=== PATIENT | female | born 1950 | race Caucasian/White ===

== ENCOUNTER 2025-01-06 05:27 | Inpatient (IN) ==
--- NOTE | 2024-12-16 11:24 | PAT Medication Instructions ---
Medication Instructions Date of Service December 16, 2024 Home Medications Medication Instructions Recorded gabapentin 300 mg capsule 300 mg PO TID #90 caps 11/24/24 aspirin 81 mg tablet,delayed release (Adult Aspirin Regimen) 81 mg PO QAM celecoxib 200 mg capsule (Celebrex) 200 mg PO QAM loratadine 10 mg tablet (Allergy Relief (loratadine)) 10 mg PO QAM rizatriptan 10 mg disintegrating tablet (Maxalt-1ST PRESSMAN) See Rx Instructions PO .COMPLEX PRN Migraine Headache rosuvastatin 20 mg tablet (Crestor) 20 mg PO HS biotin 1 mg capsule 1 mg PO QAM calcium 600 mg (as carbonate)-vitamin D3 12.5 mcg (500 unit) capsule (Calcium with Vit D3) 1 cap PO QAM multivitamin 1 tab PO QAM metoprolol succinate 25 mg tablet,extended release 24 hr 25 mg PO BID losartan 100 mg tablet 100 mg PO QAM omeprazole 40 mg capsule,delayed release 40 mg PO QAM red yeast rice 300 mg-coQ10 30 lj--ndp 120 mg-epa-fish capsule ([place]) 1 cap PO HS diazepam 10 mg tablet 5 mg PO HS PRN Sleep gabapentin 300 mg capsule 300 mg PO TID ASK your surgeon for instructions celecoxib 200 mg capsule (Celebrex) 200 mg PO QAM ASK your prescriber and surgeon aspirin 81 mg tablet,delayed release (Adult Aspirin Regimen) 81 mg PO QAM STOP taking 2 weeks before surgery (or as soon as possible if surgery is within 2 weeks) red yeast rice 300 mg-coQ10 30 op-noqnu2-rum 120 mg-epa-fish capsule ([place]) 1 cap PO HS DO NOT take the morning of surgery loratadine 10 mg tablet (Allergy Relief (loratadine)) 10 mg PO QAM biotin 1 mg capsule 1 mg PO QAM calcium 600 mg (as carbonate)-vitamin D3 12.5 mcg (500 unit) capsule (Calcium with Vit D3) 1 cap PO QAM multivitamin 1 tab PO QAM losartan 100 mg tablet 100 mg PO QAM Take morning of surgery With a small sip of water, OTHERWISE NOTHING TO EAT OR DRINK AFTER MIDNIGHT: rizatriptan 10 mg disintegrating tablet (Maxalt-1ST [place]ESS[place]) See Rx Instructions PO .COMPLEX PRN Migraine Headache (if needed) metoprolol succinate 25 mg tablet,extended release 24 hr 25 mg PO BID omeprazole 40 mg capsule,delayed release 40 mg PO QAM gabapentin 300 mg capsule 300 mg PO TID Take evening before surgery rizatriptan 10 mg disintegrating tablet (Maxalt-1ST PRESSMAN) See Rx Instructions PO .COMPLEX PRN Migraine Headache (if needed) rosuvastatin 20 mg tablet (Crestor) 20 mg PO HS metoprolol succinate 25 mg tablet,extended release 24 hr 25 mg PO BID diazepam 10 mg tablet 5 mg PO HS PRN Sleep (if needed) gabapentin 300 mg capsule 300 mg PO TID Other Notes If you have any questions please call us at [phone] or [phone] or [phone] or [phone]
--- NOTE | 2024-12-23 14:37 | Anesthesiology Consultation ---
Date of Service December 23, 2024 Assessment & Plan (1) Encounter for pre-operative examination: Chart Review Chart Review: Acceptable Risk for Surgery (pending surgeon ordered PCP and cardio clearances ) and Patient seen in Pre Admission Testing - Awaiting surgeon ordered PCP clearance 12/23/24 (Dr Krystina Goel) ( please send preop testing for PCP to review per patient request) - Awaiting surgeon ordered cardio clearance (Dr German GOMEZ cardio) 12/24/24- ( please send preop testing to cardiology for review per patient request ) Botox injections - gets every three months for migraines. Next scheduled injection 12/30/24- did make surgeon's office aware- per surgeon's office response 12/23/24 "should not get Botox injections until six weeks after surgery.". Did leave message for patient with information and surgeon's office also spoke with patient and relayed information Per PAT appt on 12/23/24, no recent illness/disease exposures, illness related symptoms, or recent illness/disease positive tests. Will leave to surgeon's discretion if preop Covid testing needed Additional Notes (PAT visit was completed remotely while patient was in PAT office) History Surgery Operation Date: 01/06/25 11:05 Proposed Procedures p L4-L5 Decompression and Fusion - Charlie Mitchell, Height/Weight Height: 5 ft 1.5 in Weight: 80.5 kg Allergies Allergy/AdvReac Type Severity Reaction Status Date / Time amoxicillin AdvReac Intermediate severe Verified 12/16/24 10:11 yeast infection ezetimibe [From Zetia] AdvReac Intermediate muscle Verified 12/16/24 10:11 cramping lisinopril AdvReac Intermediate cough Verified 12/16/24 10:11 Sulfa (Sulfonamide AdvReac Intermediate Rash Verified 12/16/24 10:11 Antibiotics) topiramate [From Topamax] AdvReac Intermediate Dizzy Verified 12/16/24 10:11 [id number] Reductase AdvReac Mild muscle Verified 12/16/24 10:12 Inhibitor pain>can tolerate zocor Medications Home Medications Medication Instructions Recorded Confirmed Last Taken aspirin 81 mg tablet,delayed 81 mg PO QAM 07/30/19 12/16/24 Unknown release (Adult Aspirin Regimen) celecoxib 200 mg capsule (Celebrex) 200 mg PO QAM 07/30/19 12/16/24 Unknown loratadine 10 mg tablet (Allergy 10 mg PO QAM 07/30/19 12/16/24 Unknown Relief (loratadine)) rizatriptan 10 mg disintegrating See Rx Instructions PO .COMPLEX 07/30/19 12/16/24 Unknown tablet (Maxalt-TIRE [place]) PRN Migraine Headache rosuvastatin 20 mg tablet (Crestor) 20 mg PO HS 07/30/19 12/16/24 Unknown biotin 1 mg capsule 1 mg PO QAM 06/09/20 12/16/24 Unknown calcium 600 mg (as 1 cap PO QAM 06/09/20 12/16/24 Unknown carbonate)-vitamin D3 12.5 mcg (500 unit) capsule (Calcium with Vit D3) multivitamin 1 tab PO QAM 06/09/20 12/16/24 Unknown metoprolol succinate 25 mg 25 mg PO BID 02/26/23 12/16/24 Unknown tablet,extended release 24 hr losartan 100 mg tablet 100 mg PO QAM 05/28/23 12/16/24 Unknown omeprazole 40 mg capsule,delayed 40 mg PO QAM 05/28/23 12/16/24 Unknown release red yeast rice 300 mg-coQ10 30 1 cap PO HS 04/14/24 12/16/24 Unknown fw-[id number]-ywo 120 mg-epa-fish capsule ([place]) diazepam 10 mg tablet 5 mg PO HS PRN Sleep 06/25/24 12/16/24 Unknown gabapentin 300 mg capsule 300 mg PO TID #90 caps 11/24/24 12/16/24 Unknown Past Medical History Medical History (Updated 12/23/24 @ 16:22 by Martha Mcgregor PA-C) Arthritis Bulging lumbar disc GERD (gastroesophageal reflux disease) well controlled and stable (omeprazole) Hiatal hernia small Hyperlipidemia Hypertension Migraine botox treatment>gets every 3 months Spinal stenosis Thyroid nodule being monitored- actually decreased in size on most recent check Oct 2024 Exercise / Class Metabolic Activity II 4-5 Yardwork/Stairs/Walk up hill (one flight of stairs - no chest pain or S OB) Past Family History Family History Other No family history of adverse response to anesthesia Past Surgical History Surgical History H/O thumb surgery right H/O wisdom tooth extraction History of bunionectomy left History of cardiac cath 2019>no stents History of colonoscopy History of esophagogastroduodenoscopy (EGD) History of hysterectomy History of tonsillectomy Past Anesthesia History No Hx of Anesthesia Complications and No Family Hx of Anesthesia Complications History of PONV No Hx of Motion Sickness and History of PONV (hx of PONV in the past- no issues with more recent surgeries ) Social History Smoking Status: Never smoker Do You Dip or Chew Tobacco: No Hx Alcohol Use: Yes alcohol intake frequency: holidays/special occasions only substance use type: does not use Review of Systems - Hx of snoring- no hx of sleep study - Hx of blood transfusion due to hemorrhage (1970 ) Patient denies chest pain, shortness of breath, dyspnea on exertion, cough, wheezing, palpitations. No hx of seizures, stroke, GA. No hx of blood clots Physical Exam Vital Signs VITALS (done by Samaria Reyes- [facility] tech) BP 120/70 P 69bpm TEMP 98.2 SP02 98% Physical exam performed in PAT office by Dr. Jolly Constitutional no acute distress ENMT Mouth: no dentition abnormality Thyromental Distance: > or= 3.5 Finger Breadths Mallampati Class: III Crowns to molars Neck normal visual inspection Respiratory normal respiratory effort; no respiratory distress Auscultation: lungs clear to auscultation bilaterally Cardiovascular Rate/Rhythm: regular rate and regular rhythm Neurologic moves all extremities Motor/Sensory: no sensory deficit Psychiatric Orientation: alert and oriented x 3 Lab Results Anesthesia Preop Results Results Anesthesia Widget: PT 10.7 Seconds (9.0-12.0) 12/23/24 PTT 26 Seconds (21-31) 12/23/24 INR 1.0 (0.9-1.1) 12/23/24 Urine Color Yellow 12/23/24 Urine Appearance Clear (Clear) 12/23/24 Urine pH 5.5 (4.5-7.5) 12/23/24 Urine Specific [place] 1.022 (1.000-1.030) 12/23/24 Urine Protein Negative (Negative) 12/23/24 Urine Glucose (UA) Negative (Negative) 12/23/24 Urine Ketones Negative (Negative) 12/23/24 Urine Blood Negative (Negative) 12/23/24 Urine Nitrite Negative (Negative) 12/23/24 Urine Bilirubin Negative (Negative) 12/23/24 Urine Urobilinogen Negative (Negative) 12/23/24 Urine Leukocyte Esterase 2+ (Negative) H 12/23/24 Urine WBC (Auto) 6-10 /hpf (0-5) H 12/23/24 Urine RBC (Auto) 0-2 /hpf (0-2) 12/23/24 Urine Hyaline Casts (Auto) 0-2 /lpf (0-2) 12/23/24 Urine Epithelial Cells (Auto) 0-2 /hpf (0-2) 12/23/24 Urine Bacteria (Auto) None Seen (None Seen) 12/23/24 Blood Type O Negative 12/23/24 Antibody Screen NEGATIVE 12/23/24 Testing Laboratory Results 11/21/24= WBC: 6.98 H/H: 12.5/39.8 PLATELETS: 199 SODIUM: 141 POTASSIUM: 4.4 CHLORIDE: 103 CO2: 26 BUN: 22 CREATININE: 0.9 GLUCOSE: 108 Electrocardiogram Date: 12/23/24 Findings: + NSR @ (66bpm ) Normal EKG per cardio Chest X-Ray Date: 12/23/24 Findings: + NAD
[2025-01-06] MEDS: LR 60ML/HR IV SCH (06:21)
[2025-01-06] MEDS: GABAPENTIN 300 MG CAP PO SCH ×2 (06:21→13:28)
[2025-01-06] MEDS: LR 15ML/HR IV SCH (06:36)
[2025-01-06] MEDS: ACETAMINOPHEN 500 MG TAB PO SCH (06:36)
[2025-01-06] MEDS: VANCOMYCIN HCL 1,250 MG in SODIUM CHLORIDE 0.9% 250 ML IV SCH (06:36)
[2025-01-06] MEDS: CeleBREX 200 MG CAP PO SCH (06:36)
[2025-01-06] MEDS ORDERED: HYDROmorphone INJ 2 MG/ML SYR/VIAL IV PRN (07:29)
[2025-01-06] MEDS ORDERED: ATROPINE SULFATE 0.1 MG/ML 10ML SYR IV PRN (07:29)
[2025-01-06] MEDS ORDERED: PROMETHAZINE HCL 6.25 MG in SODIUM CHLORIDE 0.9% 50 ML IV PRN (07:29)
[2025-01-06] MEDS ORDERED: ONDANSETRON INJ 2 MG/ML 2 ML VIAL IV PRN (07:29)
[2025-01-06] MEDS ORDERED: LIDOCAINE 2% 2 ML VIAL/AMP(20MG/ML) INFIL ONE (07:30)
[2025-01-06] MEDS ORDERED: MIDAZOLAM HCL 1 MG/ML 2ML VIAL ONE (07:30)
[2025-01-06] MEDS ORDERED: PROPOFOL IV EMULSION 10 MG/ML 20 ML VIAL IV ONE (07:30)
[2025-01-06] MEDS ORDERED: ROCURONIUM BROMIDE 10 MG/ML 5 ML VIAL IV ONE (07:52)
--- NOTE | 2025-01-06 07:56 | History & Physical Bridge Note ---
Date of Service January 06, 2025 History & Physical Bridge Note I have examined the patient, reviewed the History & Physical and in the interval since the performance of the History & Physical I have noted the following changes of clinical significance: no changes noted
--- NOTE | 2025-01-06 07:57 | History & Physical Report ---
Date of Service January 06, 2025 Assessment & Plan (1) Other spondylosis with radiculopathy, lumbar region: Plan: L4-L5 decompression and fusion History of Present Illness Chief Complaint: Back and leg pain Primary Care Provider: Katy Figueroa DO This is a 74-year-old female who presents for chronic persistent back and leg pain after failing course of nonoperative care is here for surgical intervention. Allergies Allergy/AdvReac Type Severity Reaction Status Date / Time amoxicillin AdvReac Intermediate severe Verified 01/06/25 06:01 yeast infection ezetimibe [From Zetia] AdvReac Intermediate muscle Verified 01/06/25 06:01 cramping lisinopril AdvReac Intermediate cough Verified 01/06/25 06:01 Sulfa (Sulfonamide AdvReac Intermediate Rash Verified 01/06/25 06:01 Antibiotics) topiramate [From Topamax] AdvReac Intermediate Dizzy Verified 01/06/25 06:01 Ibvejze-XQO-EuL Reductase AdvReac Mild muscle Verified 01/06/25 06:01 Inhibitor pain>can tolerate zocor Home Medications Medication Instructions Recorded Confirmed Type aspirin 81 mg tablet,delayed 81 mg PO QAM 07/30/19 01/06/25 History release (Adult Aspirin Regimen) celecoxib 200 mg capsule (Celebrex) 200 mg PO QAM 07/30/19 01/06/25 History loratadine 10 mg tablet (Allergy 10 mg PO QAM 07/30/19 01/06/25 History Relief (loratadine)) rizatriptan 10 mg disintegrating See Rx Instructions PO .COMPLEX 07/30/19 01/06/25 History tablet (Maxalt-UT[employer] ROLL[employer]) PRN Migraine Headache rosuvastatin 20 mg tablet (Crestor) 20 mg PO HS 07/30/19 01/06/25 History biotin 1 mg capsule 1 mg PO QAM 06/09/20 01/06/25 History calcium 600 mg (as 1 cap PO QAM 06/09/20 01/06/25 History carbonate)-vitamin D3 12.5 mcg (500 unit) capsule (Calcium with Vit D3) multivitamin 1 tab PO QAM 06/09/20 01/06/25 History metoprolol succinate 25 mg 25 mg PO BID 02/26/23 01/06/25 History tablet,extended release 24 hr losartan 100 mg tablet (Cozaar) 100 mg PO QA 05/28/23 01/06/25 History omeprazole 40 mg capsule,delayed 40 mg PO QAM 05/28/23 01/06/25 History release red yeast rice 300 mg-coQ10 30 1 cap PO HS 04/14/24 01/06/25 History lh-tozts9-hhm 120 mg-epa-fish capsule ([place]) diazepam 10 mg tablet (Valium) 5 mg PO HS PRN Sleep 06/25/24 01/06/25 History gabapentin 300 mg capsule 300 mg PO TID #90 caps 11/24/24 01/06/25 Rx Past Med/Surg History Problem List (Updated 01/06/25 @ 07:57 by Charlie Mitchell DO) Other spondylosis with radiculopathy, lumbar region Encounter for pre-operative examination Spinal stenosis of lumbar region Lumbar radiculopathy Chronic low back pain Chronic migraine (Chronic) Impingement syndrome, shoulder History of tonsillectomy H/O: hysterectomy History of bunionectomy SI joint arthritis Acid reflux Osteoarthritis Elevated cholesterol HTN (hypertension) Hx of migraines Medical History (Updated 01/06/25 @ 07:57 by Charlie Mitchell DO) Atrial tachycardia Transient atrial tachycardia/wide complex tachycardia past surgical procedure no recurrence per cardio records Hiatal hernia small Bulging lumbar disc Spinal stenosis Arthritis Thyroid nodule being monitored- actually decreased in size on most recent check Oct 2024 GERD (gastroesophageal reflux disease) well controlled and stable (omeprazole) Migraine botox treatment>gets every 3 months Hypertension Hyperlipidemia Surgical History History of bunionectomy left H/O thumb surgery right History of esophagogastroduodenoscopy (EGD) History of colonoscopy H/O wisdom tooth extraction History of tonsillectomy History of hysterectomy History of cardiac cath 2018>no stents Family History Other No family history of adverse response to anesthesia Social History Smoking Status: Never smoker Second Hand Exposure: No; Do You Dip or Chew Tobacco: No; Hx Alcohol Use: Yes Preferred Language: Brazilian Communication Ability: Effective Visual Impairment: No Limitations Hearing Ability: Normal Heel Nail Rasper Required: No Beliefs That Will Affect Care: None marital status: Current Living Situation: Alone current occupational status: retired Feels Safe at Home: Yes Safety Concerns: Feels Safe At This Time Assistive Devices: Glasses Physical Exam Physical Exam: Patient alert and oriented Heart regular rhythm Lungs clear Results & Data Results & Data Vital Signs (Past 12 Hours) Vital Signs Temp Pulse Resp BP Pulse Ox O2 Del Method 01/06/25 06:06 36.8 C 64 20 156/68 H 97 Room Air
[2025-01-06] MEDS: BUPIVACAINE/EPINEPHRINE 0.25% 1:200,000 30 ML VIAL ONE (08:40)
[2025-01-06] MEDS: ceFAZolin 330 MG/ML 1 GM VIAL ONE (08:41)
[2025-01-06] MEDS ORDERED: SUGAMMADEX SODIUM 200 MG/2 ML VIAL IV ONE (09:36)
--- NOTE | 2025-01-06 09:41 | Operative Report ---
Post Operative Report Pre & Post Diagnosis Operation Date: 01/06/25 07:45 Pre-Op Diagnosis: #1 lumbar spondylosis with radiculopathy #2 lumbar spinal stenosis Post-Op Diagnosis: Same I identified the patient and participated in the time-out.: Yes Procedure Operation Date: 01/06/25 07:45 Actual Procedures #1 lumbar decompression bilaterally facetectomies and foraminotomies L3-L4 L4- L5. #2 posterior spinal fusion L4-L5. #3 placement posterior instrumentation L4-L5. #4 interbody fusion L4-L5. #5 posterior Spira 13 x 26 mm x 2 at L4-L5. #6 placement of Koros combined with Proteus bone graft and posterior lateral gutters and os design and interbody space. #7 placement of versa wrap over the exposed dura. Surgeon Charlie Mitchell, Inventory Specialist Manager Ling Mc Estimated Blood Loss 50 Findings Consistent with Post-Op Diagnosis Specimens None Indications This is a 74-year-old female presents publish diagnosis after failing course of nonoperative care is here for surgery invention. Description of Procedure Patient was met with identified informed consent obtained. Patient was then taken to the operative suite underwent the patient placed in the prone position on the Kartik table on top of the Qasim frame. All bony promises well-padded eyes inspected to ensure no external pressure placed upon them. This point lumbar spine was prepped and draped in normal sterile fashion. Sharp dissection with the assistance of of cartilage from down to and exposing the lamina and transverse processes of L4-L5. From a caudal to cephalad fashion complete laminectomy of L4 was performed including bilateral medial facetectomies and foraminotomies addressing severe neural compression. This followed by partial laminectomy of L3 with bilateral medial facetectomies to address all subarticular stenosis. Pedicle screws were then placed in L for L5 bilaterally with assistance of fluoroscopy and appropriately sized mayda placed. By way of transforaminal approach on the right a discectomy of L4-L5 was performed endplates corrected to subcortical bleeding bone and a 13 x 26 mm Spira cage tapped into position. Then proceeded to the left transforaminal region at L4- L5. Again discectomy performed. Endplates guided to subcortical bleeding bone and a second 13 x 26 mm Spira cage tapped into position. Please note all cages were packed with os design bone graft. The rods were then compressed locked into final position bilaterally. The transverse processes of L4-5 burred to subcortical bleeding bone. Koros combined with Proteus bone graft placed in posterior gutters. Versa wrap placed over the exposed dura. 15 round KARRI drain inserted. The incision was then closed with 1 Vicryl in the fascia 2-0 Vicryl subcutaneously and 4-0 Monocryl for final skin closure. Steri-Strips sterile dressing placed. Patient waken taken to PACU stable condition. Please note Ling Mc was present throughout the entire procedure involved patient positioning complex portion of the surgery and final skin closure. I attest to the content of the Intraoperative Record and any orders documented therein. Any exceptions are noted below.
--- NOTE | 2025-01-06 09:56 | Fluoroscopy Report ---
FL lumbar spine 2-3V CLINICAL HISTORY: L4-L5 DECOMPRESSION AND FUSION COMPARISON STUDY: Lumbar spine MRI December 23, 2024. Fluoroscopy time: 11 seconds. Number of fluoroscopic images: 1. Ka,r: 9.0189 mGy. FINDINGS: Fluoroscopy was provided during L4-L5 discectomy with interbody spacer placement, posterior decompression and bilateral pedicle screw fusion. Hardware is intact. No unexpected radiopaque forei gn bodies are present. IMPRESSION: Fluoroscopy provided during L4-L5 decompression and fusion. ACT 112: Negative or not required by law. Electronically signed by: Tanner Johnson M.D. 01/06/2025 9:54 AM
--- NOTE | 2025-01-06 10:10 | Anesthesiology Progress Note ---
Date of Service January 06, 2025 Anesthesia Post Procedure Vital Signs Vital Signs: Temp Pulse Pulse Resp BP Pulse Ox O2 Del Method 01/06/25 09:50 36.0 C L 77 16 168/69 H 98 Oxymask 01/06/25 06:06 36.8 C 64 20 156/68 H 97 Room Air O2 Flow Rate 01/06/25 09:50 7 01/06/25 06:06 Pain Intensity Left Lower Lateral Back: Pain Intensity: 5 Transfer of Care Handoff Completed per policy Notes Mental Status: alert / awake / arousable Patient Amnestic to Procedure: Yes Nausea / Vomiting: adequately controlled Pain: adequately controlled Airway Patency, RR, SpO2: stable & adequate BP & HR: stable & adequate Hydration State: stable & adequate Anesthetic Complications: no major complications apparent
[2025-01-06] MEDS ORDERED: METOCLOPRAMIDE HCL INJ 5 MG/ML 2 ML VIAL IV PRN (11:50)
[2025-01-06] MEDS ORDERED: MAGNESIUM HYDROXIDE SUSP 30 ML UDC PO PRN (11:50)
[2025-01-06] MEDS ORDERED: ACETAMINOPHEN 1,000 MG/100 ML VIAL IV PRN (11:50)
[2025-01-06] MEDS ORDERED: LORazepam Inj 0.5 MG in SYRINGE 0.25 ML IV PRN (11:50)
[2025-01-06] MEDS ORDERED: PROMETHAZINE 12.5 MG/50.5 ML BAG IV PRN (11:50)
[2025-01-06] MEDS ORDERED: ALUMINUM/MAGNESIUM SUSP 30 ML UDC PO PRN (11:50)
[2025-01-06] MEDS ORDERED: FAMOTIDINE 20 MG TAB PO PRN (11:50)
[2025-01-06] MEDS ORDERED: HYDROmorphone INJ 0.5 MG/0.5 ML SYR IV PRN (11:50)
[2025-01-06] MEDS ORDERED: ONDANSETRON 4 MG OD TAB PO PRN (11:50)
[2025-01-06] MEDS ORDERED: LORazepam 0.5 MG TAB PO PRN (11:50)
[2025-01-06] MEDS ORDERED: DO NOT ADMINISTER FLU VACCINE PRN (11:50)
[2025-01-06] MEDS ORDERED: diphenhydrAMINE Capsule 25 MG CAP PO PRN (11:50)
[2025-01-06] MEDS ORDERED: SOD PHOSPHATE/SOD BIPHOSPHATE ENEMA 132 ML BTL PR PRN (11:50)
[2025-01-06] MEDS ORDERED: DO NOT ADMINISTER PNEUMOCOCCAL VACCINE PRN (11:50)
[2025-01-06] MEDS ORDERED: NALOXONE HCL 0.4 MG/1 ML VIAL/CARP IV PRN (11:50)
[2025-01-06] MEDS: FLOSEAL HEMOSTATIC MATRIX 10ML TOP ONE (11:59)
[2025-01-06] MEDS ORDERED: RIZATRIPTAN BENZOATE 10 MG TAB PO PRN (12:04)
[2025-01-06] MEDS: LACTATED RINGER'S 1,000 ML IV SCH (12:20)
[2025-01-06] MEDS: HYDROmorphone INJ 1 MG/ML SYRINGE IV PRN (12:21)
--- NOTE | 2025-01-06 13:24 | Consultation ---
Date of Consultation January 06, 2025 Assessment & Plan (1) Other spondylosis with radiculopathy, lumbar region: (2) Hyperlipidemia: (3) HTN (hypertension): (4) GERD (gastroesophageal reflux disease): Plan 74 year old F post op L4-L5 decompression and fusion surgery under the care of Dr. Mitchell. #Other spondylosis with radiculopathy; lumbar: POD#0 s/pL4-L5 decompression and fusion surgery under the care of Dr. Mitchell. Per ortho for pain control, wound care, anticoagulation and activities. Monitor H&H, continue incentive spirometry. PT/OT when appropriate. Demonstrated appropriate Incentive Spirometry work #HTN Takes Losarten and Metoprolol; continue #HLD: Takes Rosuvastatin; continue #GERD: Takes Omeprazole; continue Disposition: PCP: Katy Figueroa Code Status: Full VTE Prophylaxis: Teds and SCDs per admitting team I spent a total of 60 minutes coordinating, documenting, and providing care for this patient excluding time spent inthe performance of separately billed services or time spent by another provider/QHP. Supervising Physician Co-Signing Physician Notes Patient is a 74-year-old female with history of lumbar spinal stenosis, migraine, hypertension, hyperlipidemia, GERD and no other significant past medical history was consulted for postop medical management. Patient underwent lumbar decompression, fusion surgery by Dr. Mitchell on 01/06/2025. Patient is doing well postoperatively. She does have some pain at the surgical site but otherwise denies any symptoms. On exam patient is overweight, no apparent distress, normocephalic atraumatic, EOMI, normal breath sounds, clear to auscultation, S1-S2, no murmur, no pedal edema, abdomen soft, nontender, normal bowel sounds, back-surgical site in dressing,+ drain, alert, awake, oriented, grossly no focal deficits. Postoperative state. Monitor for postop anemia. Continue bowel regimen to prevent constipation. Wound care, activity, DVT prophylaxis as per primary team. Continue home medications for blood pressure. Will plan to obtain blood work tomorrow. I personally interviewed and examined the patient at bedside. I have reviewed the advanced practitioner's documentation on the date of service referred in note and agree with plan. Patient's care is coordinated with Jyoti VIDALES. Please refer to the documentation above for details of patient's presentation and for discussion of other issues. I spent a total [id number] coordinating, documenting, and providing care for this patient excluding time spent in the performance of separately billed services or time spent by another provider/QHP. History of Present Illness Requesting Physician: Dr. Mitchell Reason for Consultation: post op medical management Attending Physician: Charlie Mitchell, DO History of Present Illness Ms. Ricardo is a 74 year old female that presents to the [facility] under the care of Dr. Mitchell for an elective L4-L5 decompression and fusion surgery. This is her first back surgery. She has no history of AMI or CVA. Additional PMH includes HTN, HLD and peripheral neuropathy. She is doing well post op and has already tolerated a clear liquid diet. She is able to move her legs and reports less peripheral neuropathy compared to pre op. She is AAOx3 and her daughter and granddaughter are at bedside. [facility] Hospitalist were consulted for post operative medical management. We are available 28/08 via [employer]. Please see A/P for further details. Allergies Allergy/AdvReac Type Severity Reaction Status Date / Time amoxicillin AdvReac Intermediate severe Verified 01/06/25 06:01 yeast infection ezetimibe [From Zetia] AdvReac Intermediate muscle Verified 01/06/25 06:01 cramping lisinopril AdvReac Intermediate cough Verified 01/06/25 06:01 Sulfa (Sulfonamide AdvReac Intermediate Rash Verified 01/06/25 06:01 Antibiotics) topiramate [From Topamax] AdvReac Intermediate Dizzy Verified 01/06/25 06:01 [id number] Reductase AdvReac Mild muscle Verified 01/06/25 06:01 Inhibitor pain>can tolerate zocor Home Medications Medication Instructions Recorded Confirmed Type aspirin 81 mg tablet,delayed 81 mg PO QAM 07/30/19 01/06/25 History release (Adult Aspirin Regimen) celecoxib 200 mg capsule (Celebrex) 200 mg PO QAM 07/30/19 01/06/25 History loratadine 10 mg tablet (Allergy 10 mg PO QAM 07/30/19 01/06/25 History Relief (loratadine)) rizatriptan 10 mg disintegrating See Rx Instructions PO .COMPLEX 07/30/19 01/06/25 History tablet (Maxalt-MARKETING OPERATIONS ASSISTANT) PRN Migraine Headache rosuvastatin 20 mg tablet (Crestor) 20 mg PO HS 07/30/19 01/06/25 History biotin 1 mg capsule 1 mg PO QAM 06/09/20 01/06/25 History calcium 600 mg (as 1 cap PO QAM 06/09/20 01/06/25 History carbonate)-vitamin D3 12.5 mcg (500 unit) capsule (Calcium with Vit D3) multivitamin 1 tab PO QAM 06/09/20 01/06/25 History metoprolol succinate 25 mg 25 mg PO BID 02/26/23 01/06/25 History tablet,extended release 24 hr losartan 100 mg tablet (Cozaar) 100 mg PO QAM 05/28/23 01/06/25 History omeprazole 40 mg capsule,delayed 40 mg PO QAM 05/28/23 01/06/25 History release red yeast rice 300 mg-coQ10 30 1 cap PO HS 04/14/24 01/06/25 History [id number] 120 mg-epa-fish capsule ([place]) diazepam 10 mg tablet (Valium) 5 mg PO HS PRN Sleep 06/25/24 01/06/25 History gabapentin 300 mg capsule 300 mg PO TID #90 caps 11/24/24 01/06/25 Rx oxycodone 5 mg tablet 5 mg PO Q6H PRN pain #30 tabs 01/06/25 Rx tramadol 50 mg tablet 50 mg PO Q6H PRN pain, moderate 01/06/25 Rx #30 tabs Patient History Medical History Atrial tachycardia Transient atrial tachycardia/wide complex tachycardia past surgical procedure no recurrence per cardio records Hiatal hernia small Bulging lumbar disc Spinal stenosis Arthritis Thyroid nodule being monitored- actually decreased in size on most recent check Oct 2024 GERD (gastroesophageal reflux disease) well controlled and stable (omeprazole) Migraine botox treatment>gets every 3 months Hypertension Hyperlipidemia Surgical History History of bunionectomy left H/O thumb surgery right History of esophagogastroduodenoscopy (EGD) History of colonoscopy H/O wisdom tooth extraction History of tonsillectomy History of hysterectomy History of cardiac cath 2018>no stents Family History Other No family history of adverse response to anesthesia Social History Smoking Status: Never smoker Second Hand Exposure: No; Do You Dip or Chew Tobacco: No; Hx Alcohol Use: Yes Preferred Language: Bengali Communication Ability: Effective Visual Impairment: No Limitations Hearing Ability: Normal Coal Trammer Required: No Beliefs That Will Affect Care: None marital status: Current Living Situation: Alone current occupational status: retired Feels Safe at Home: Yes Safety Concerns: Feels Safe At This Time Assistive Devices: Glasses Review of Systems Review of Systems: Neuro: (-) Falls, trauma, slurred speech HEENT: (-) LIZAMA, dizziness, dysphagia, visual or auditory changes CV: (-) CP, palpitations, swelling Resp: (-) SOB GI: (-) appetite changes, N/V/D, bowel changes : (-) urinary changes Skin: (-) rashes Psych: (-) anxiety, depression Physical Exam Physical Exam: Neuro: AAOx4, PERRLA, no aphagia, memory changes, CNII-XII grossly intact HEENT: head normocephalic, moist mucus membranes CV: S1/S2, (-) M/G/R, (-) edema, cap refill < 3 seconds Resp: Lungs CTA in all sow. On RA GI: Abdomen S/NT/ND, Ax4 bowel sounds, (-) CVA tenderness Musculoskeletal: 5/5 B/L UE strength, 4/5 B/L LE strength. will use walker post op Skin: (-) rashes , (-) erythema. Psych: euthymic mood Results & Data Vital Signs (Past 12 Hours) Vital Signs Temp Pulse Pulse Resp BP Pulse Ox O2 Del Method 01/06/25 12:15 77 18 143/74 H 97 Room Air 01/06/25 11:51 36.5 C 74 17 139/68 93 Room Air 01/06/25 11:30 72 13 143/58 H 94 Nasal Cannula 01/06/25 11:15 73 12 158/65 H 95 Nasal Cannula 01/06/25 11:00 70 12 136/71 95 Nasal Cannula 01/06/25 10:45 70 12 167/75 H 96 Nasal Cannula 01/06/25 10:30 36.2 C L 69 12 154/73 H 99 Nasal Cannula 01/06/25 10:20 72 14 151/51 H 96 Nasal Cannula 01/06/25 10:10 71 12 157/87 H 99 Oxymask 01/06/25 10:00 71 16 153/64 H 99 Oxymask 01/06/25 09:50 36.0 C L 77 16 168/69 H 98 Oxymask 01/06/25 06:06 36.8 C 64 20 156/68 H 97 Room Air O2 Flow Rate 01/06/25 12:15 01/06/25 11:51 01/06/25 11:30 2 01/06/25 11:15 2 01/06/25 11:00 2 01/06/25 10:45 2 01/06/25 10:30 2 01/06/25 10:20 2 01/06/25 10:10 7 01/06/25 10:00 7 01/06/25 09:50 7 01/06/25 06:06 Diagnostic Findings Lumbar Spine X-Ray 01/06/25 07:45 FL lumbar spine 2-3V CLINICAL HISTORY: L4-L5 DECOMPRESSION AND FUSION COMPARISON STUDY: Lumbar spine MRI December 23, 2024. Fluoroscopy time: 11 seconds. Number of fluoroscopic images: 1. Ka,r: 9.0189 mGy. FINDINGS: Fluoroscopy was provided during L4-L5 discectomy with interbody spacer placement, posterior decompression and bilateral pedicle screw fusion. Hardware is intact. No unexpected radiopaque foreign bodies are present. IMPRESSION: Fluoroscopy provided during L4-L5 decompression and fusion. ACT 112: Negative or not required by law. Electronically signed by: Tanner Johnson M.D. 01/06/2025 9:54 AM
[2025-01-06] MEDS: ONDANSETRON INJ 2 MG/ML 2 ML VIAL IV PRN (15:30)
[2025-01-06] MEDS: DOCUSATE SODIUM/SENNA 50/8.6MG TAB PO SCH (20:05)
[2025-01-06] MEDS: ROSUVASTATIN CALCIUM 20 MG TAB PO SCH (20:05)
[2025-01-06] MEDS: METOPROLOL SUCC 25MG EXT REL TAB PO SCH (20:06)
[2025-01-07] MEDS: ACETAMINOPHEN 500 MG TAB PO PRN (01:53)
[2025-01-07] MEDS: POLYETHYLENE (MIRALAX) 17 GM PACK PO SCH (05:08)
[2025-01-07 06:35] LABS: Hematocrit (blood only) 29.4 % (37.0-47.0); Hemoglobin 9.8 g/dL (12.0-16.0); Immature Granulocytes # (auto) 0.07 K/uL (0.01-0.20); Immature Granulocytes % (auto) 0.5 %; Mean Corpuscular Hemoglobin 29.6 pg (25.0-34.0); Mean Corpuscular Volume 88.8 fL (80.0-100.0); Platelet Count 149 K/uL (130-400); RDW Standard Deviation 40.0 fL (36.4-46.3); Red Blood Count 3.31 M/uL (4.20-5.40); White Blood Count 12.77 K/ul (4.8-10.8)
[2025-01-07 07:05] LABS: Anion Gap 7.0 (3-11); Blood Urea Nitrogen 15.0 mg/dl (6-23); Calcium 8.6 mg/dl (8.6-10.3); Carbon Dioxide 27.0 mmol/L (21-32); Chloride 106.0 mmol/L (98-107); Creatinine Clr Calc Pharmacy 58.5 ml/min; Glucose 138.0 mg/dl (70-99(Fasting)); Potassium 4.3 mmol/L (3.5-5.1); Sodium 140.0 mmol/L (136-145)
[2025-01-07] MEDS: CALCIUM 600MG + VIT D 400 IU TAB PO SCH (08:05)
[2025-01-07] MEDS: MULTIVITAMIN TAB PO SCH (08:06)
[2025-01-07] MEDS: ASPIRIN 81 MG ECTAB PO SCH (08:06)
[2025-01-07] MEDS: dexAMETHasone 6 MG in SYRINGE 0 ML IV SCH (08:07)
[2025-01-07] MEDS: LORATADINE 10 MG TAB PO SCH (08:09)
[2025-01-07] MEDS: LOSARTAN POTASSIUM 50 MG TAB PO SCH (08:13)
--- NOTE | 2025-01-07 08:31 | Orthopedic Progress Note ---
Date of Service January 07, 2025 Assessment & Plan (1) Other spondylosis with radiculopathy, lumbar region: Plan: Serina is postoperative day 1 status post L4-5 decompression and fusion. She will start physical therapy today. Maintain KARRI drain. DVT prophylaxis in the form teds and SCDs. Consult case management for decision of home versus rehab upon discharge. Admission and Anticipated Discharge Date Admission Date: January 06, 2025 Subjective Serina is postoperative day 1 status post L4-5 decompression and fusion. Her biggest complaint is right leg weakness. She reports having this preoperatively. KARRI drain output last shift was 10 cc. H&H this morning 9.8 and 29.4 respectively. No other complaints. Review of Systems Review of Systems: All systems reviewed & are unremarkable except as noted in HPI & below Physical Exam Physical Exam: She is sitting up in bed eating breakfast in no acute distress Alert and oriented x 3 She does have breakaway weakness over the right lower extremity, strength 5/5 left lower extremity Lumbar dressing is clean dry and intact with functioning KARRI drain Results & Data Vital Signs (Past 12 Hours) Vital Signs Temp Pulse Pulse Resp BP Pulse Ox O2 Del Method 01/07/25 08:13 80 18 148/76 H 97 Room Air 01/07/25 07:48 36.5 C 79 18 114/56 L 96 Room Air 01/07/25 07:14 36.7 C 74 16 110/59 L 93 Room Air 01/07/25 03:11 36.5 C 79 16 111/55 L 96 Room Air 01/06/25 23:57 36.4 C L 86 16 120/60 96 Room Air
--- NOTE | 2025-01-07 10:43 | Hospitalist Progress Note ---
Date of Service January 07, 2025 Assessment & Plan (1) Other spondylosis with radiculopathy, lumbar region: (2) Hyperlipidemia: (3) HTN (hypertension): (4) GERD (gastroesophageal reflux disease): Plan Patient 74-year-old female status post lumbar surgery. Reviewed blood pressures, overall fairly well-controlled, continue current medical regimen Continue activity Post op care as per attending Admission and Anticipated Discharge Date Admission Date: January 06, 2025 Subjective Patient seen while working with OT. States her pain is significantly improved. No chest pain or shortness of breath Physical Exam Physical Exam: Constitutional: Alert HEENT: Mucous membranes moist. Lungs: Clear to auscultation, decreased, no wheezes rales or rhonchi CV: S1-S2, regular Abdomen: Soft, nontender, nondistended Musculoskeletal: KARRI drain in place, surgical dressing clean Extremities: No significant edema Neuro: Good strength and movement lower extremities Psych: Cooperative, normal mood Results & Data Results & Data Vital Signs (Past 12 Hours) Vital Signs Temp Pulse Pulse Resp BP Pulse Ox O2 Del Method 01/07/25 08:13 80 18 148/76 H 97 Room Air 01/07/25 07:48 36.5 C 79 18 114/56 L 96 Room Air 01/07/25 07:14 36.7 C 74 16 110/59 L 93 Room Air 01/07/25 03:11 36.5 C 79 16 111/55 L 96 Room Air 01/06/25 23:57 36.4 C L 86 16 120/60 96 Room Air Diagnostic Findings WBCs 12.7 Hemoglobin 9.8 BMP stable
--- NOTE | 2025-01-08 08:36 | Orthopedic Progress Note ---
Date of Service January 08, 2025 Assessment & Plan (1) Other spondylosis with radiculopathy, lumbar region: Plan: At this time we will continue physical therapy monitor KARRI output anticipate discharge home tomorrow. Admission and Anticipated Discharge Date Admission Date: January 06, 2025 Subjective Patient's back pain is controlled leg symptoms improved Physical Exam Physical Exam: Patient is in the chair at the bedside. She is quite comfortable. Good strength testing. Results & Data Vital Signs (Past 12 Hours) Vital Signs Temp Pulse BP Pulse Ox O2 Del Method 01/08/25 07:44 36.7 C 61 107/58 L 97 Room Air Queries Orthopedic Spine Obesity: Yes
--- NOTE | 2025-01-08 10:38 | Hospitalist Progress Note ---
Date of Service January 08, 2025 Assessment & Plan (1) Other spondylosis with radiculopathy, lumbar region: (2) Hyperlipidemia: (3) HTN (hypertension): (4) GERD (gastroesophageal reflux disease): Plan Patient 74-year-old female status post lumbar surgery, uncomplicated postop erative course so far Blood pressure is well-controlled Continue current medications Continue to work towards discharge as directed by attending Admission and Anticipated Discharge Date Admission Date: January 06, 2025 Subjective Patient states her pain is well-controlled. She has been ambulating in her room getting up by herself. Physical Exam Physical Exam: Constitutional: Alert, nontoxic HEENT: Mucous membranes moist. Lungs: Clear to auscultation, decreased, no wheezes rales or rhonchi CV: S1-S2, regular Abdomen: Soft, nontender, nondistended Extremities: No significant edema Musculoskeletal: Surgical dressing over lumbar spine clean and dry, KARRI drain in place Neuro: No focal deficits Psych: Cooperative, normal mood Results & Data Results & Data Vital Signs (Past 12 Hours) Vital Signs Temp Pulse BP Pulse Ox O2 Del Method 01/08/25 07:44 36.7 C 61 107/58 L 97 Room Air Diagnostic Findings Reviewed imaging, laboratory and diagnostic studies. Pertinent findings as below.
--- NOTE | 2025-01-09 10:21 | Discharge Summary ---
Date of Service January 09, 2025 Admission HPI Per Admitting Provider This is a 74-year-old female who presents for chronic persistent back and leg pain after failing course of nonoperative care is here for surgical intervention. Principal Diagnosis Lumbar spondylosis with radiculopathy Discharge Data Allergies Allergy/AdvReac Type Severity Reaction Status Date / Time amoxicillin AdvReac Intermediate severe Verified 01/06/25 06:01 yeast infection ezetimibe [From Zetia] AdvReac Intermediate muscle Verified 01/06/25 06:01 cramping lisinopril AdvReac Intermediate cough Verified 01/06/25 06:01 Sulfa (Sulfonamide AdvReac Intermediate Rash Verified 01/06/25 06:01 Antibiotics) topiramate [From Topamax] AdvReac Intermediate Dizzy Verified 01/06/25 06:01 [id number] Reductase AdvReac Mild muscle Verified 01/06/25 06:01 Inhibitor pain>can tolerate zocor Consultations 01/06/25 11:50 Consult Hospitalist Routine Procedures Performed Operation Date: 01/06/25 07:45 Actual Procedures p L4-L5 Decompression and Fusion(Not Applicable) - Charlie Mitchell DO Ordered Studies 01/06/25 07:45 FL lumbar spine 2-3V Routine Hospital Course (1) Other spondylosis with radiculopathy, lumbar region: Patient went lumbar decompression fusion tolerated so was taken to orthopedic for postoperative postoperative she progressed appropriately. KARRI drain decreasing well. Excellent strength testing. Pain controlled. Subcu discharge home per discharge orders instructions from the chart for the view. Total Time Total Time Spent Total Time Spent (In Minutes): 20 minutes Discharge Plan Discharge Items Patient Disposition: Home - Self-Care Reason For Visit: Single Level Lumbosacral Spondylosis with Radiculo Discharge Diagnosis: Lumbar spondylosis with radiculopathy Activity: As commented below Non-emergency contact: Primary Care Provider Call non-emergency contact if: you have any medication questions Follow-up/Referrals: Katy Figueroa DO [Primary Care Provider] - Diet: Regular Addtl Attending Provider Instructions: ACTIVITY RECOMMENDATIONS: SELF CARE INSTRUCTIONS AFTER THORACIC/LUMBAR FUSIONS 1. You may walk to your tolerance. It is good exercise for your legs and back. Expect some back and intermittent leg aches and pains. 2. You may perform "counter-top" level activities (make a sandwich, yoly with a project, etc.). 3. No bending or lifting of more than 10 pounds or back twisting of any nature (roll like a log when turning in bed). 4. You may ride in a car for 20-30 minutes at a time. No driving until after your first visit with your doctor. 5. Frequent changes of position and restricting sitting to 30 minutes at a time will help limit the amount of back spasms and stiffness you may experience. 6. You may discontinue the use of ambulatory aids (cane, crutches, etc.) once your strength and confidence allow. 7. You may taping machine operator the shower and let water strike your incision when you arrive home at least once daily. Do not take a tub bath, sit in a hot tub or go into a swimming pool until after your first recheck in the office. 8. You may resume previous diet. SPECIAL CARE INSTRUCTIONS: VERY IMPORTANT TO READ AND REVIEW A. Your surgical incision has been closed with a cosmetic suture under the skin that will dissolve in about 6 weeks. In 14 days, you can use a pair of clean scissors and cut the suture that is left outside of the skin at the ends of your incision. 1. The small skin tapes can be removed 7 days after surgery if they have not fallen off by that point. 2. You may keep the wound open to air as much as possible to promote healing after post-op day number 5 unless told otherwise by your doctor. 3. If you think the wound looks like it is becoming infected (redness or worsening drainage) and/or you are experiencing fever, chill or worsening back pain and muscle spasms, contact the office so that we may evaluate you as soon as possible. B. Complications are uncommon, but please contact us if you have any signs or symptoms of: 1. wound infection (fever higher than 102.5 degrees F, redness, separation of wound, drainage, or increasing pain from the incision) 2. blood clots in legs (pain, swelling, redness and warmth in legs) 3. urinary tract infection (fever higher than 102.5 degrees F, burning upon urination or increased frequency of urination) 4. nerve problems (inability to walk on your toes or heels, numbness, loss of bowel or bladder control) 5. any other symptoms that concern you C. Please call the office at if you have any concerns or questions about your operation or recovery. D. No smoking! Smoking drastically decreases the chance of a solid fusion. E. Do not take any anti-inflammatory medications (Indocin, Advil, Motrin, Aspirin, Naprosyn, etc.) as these may inhibit the chance of a solid fusion. Tylenol is okay to take for pain. MANAGING PAIN AFTER SPINAL SURGERY 1. Narcotic medication is intended for short-term use and will be provided for surgical pain. Surgical pain usually lasts for a period of 4-6 weeks. Narcotic medication includes Percocet, Vicodin, Darvocet, Tylenol #3 or Lortab. 2. Longer-term pain is more appropriately treated with non-narcotic medication such as Tylenol ES. 3. Muscle spasm is not appropriately treated with narcotics. Muscle relaxers such as Soma, Flexeril or Skelaxin can be used along with Tylenol ES. 4. Remember that we all live with some "aches and pains". This is not unusual or uncommon after an injury or as we get older. a. Back pain is expected and may include muscle spasms for 4 to 6 weeks after surgery. The pain should gradually improve. If the pain worsens for no apparent reason, please contact the office. b. Intermittent leg pain may also be experienced and should not be concerned about unless it worsens for no apparent reason. If so, please contact the office. 5. We will provide appropriate medication within the normal guidelines of their prescribed use. We will also be very cautious and aware of potential abuse and extended duration of patients' medication needs. a. Pain medications are for your comfort and to assist with sleep and rest so that the tissue can heal. They are not provided in order to return to normal activity and should not be used through the day. To do so or worsening pain at night can result from ongoing tissue damage and development of tolerance to the prescribed medicine. 6. Please allow 2-3 days to process refills. Prescriptions will not be mailed but must be picked up at the office. FOLLOW UP VISIT: Keep your scheduled follow-up appointment. Any questions, please call the office at . Pending Studies at Discharge: No Stand-Alone Forms: [facility], Smoking Cessation Medications and IA Order Prescriptions: New tramadol 50 mg tablet 50 mg PO Q6H PRN (Reason: pain, moderate) Qty: 30 0RF oxycodone 5 mg tablet 5 mg PO Q6H PRN (Reason: pain) Qty: 30 0RF Rx Instructions: Oxycodone for severe pain tramadol for moderate pain Continued aspirin [Adult Aspirin Regimen] 81 mg tablet,delayed release (DR/EC) 81 mg PO QAM loratadine [Allergy Relief (loratadine)] 10 mg tablet 10 mg PO QAM celecoxib [Celebrex] 200 mg capsule 200 mg PO QAM rosuvastatin [Crestor] 20 mg tablet 20 mg PO HS rizatriptan [Maxalt-LEAD RETAIL SALES ASSOCIATE] 10 mg tablet,disintegrating See Rx Instructions PO .COMPLEX PRN (Reason: Migraine Headache) Rx Instructions: as needed q 2 hours as needed, up to 3 in 24 hours PRN multivitamin Tablet 1 tab PO QAM biotin 1 mg capsule 1 mg PO QAM calcium carbonate-vitamin D3 [Calcium 600 with Vitamin D3] 600 mg(1,500mg) - 500 unit capsule 1 cap PO QAM [place] [id number] mg capsule 1 cap PO HS metoprolol succinate 25 mg tablet extended release 24 hr 25 mg PO BID losartan [Cozaar] 100 mg tablet 100 mg PO QAM omeprazole 40 mg capsule,delayed release(DR/EC) 40 mg PO QAM diazepam [Valium] 10 mg tablet 5 mg PO HS PRN (Reason: Sleep) gabapentin 300 mg capsule 300 mg PO TID Qty: 90 2RF Discharge Orders: Discharge Order (Routine); Ordered 01/09/25 Ordered By: Charlie Mitchell Admission Data Admit Date/Time: 01/06/25 09:44 Attending Provider: Charlie Mitchell Admit Provider: Charlie Mitchell Primary Care Provider: Katy Figueroa Other Providers: Nilda Rubin
--- NOTE | 2025-01-09 11:15 | Hospitalist Progress Note ---
Date of Service January 09, 2025 Assessment & Plan (1) Other spondylosis with radiculopathy, lumbar region: (2) Hyperlipidemia: (3) HTN (hypertension): (4) GERD (gastroesophageal reflux disease): Plan Patient's status post lumbar surgery. Medical issues have been well controlled during her hospitalization and postoperative care phase. Educated patient that the blood pressure can fluctuate throughout the day. All of her blood pressures have been acceptable. Would not recommend any medications changes. Recommend patient continue her preadmission medications at the time of discharge. Medically ready for discharge when discharged by surgical attending Admission and Anticipated Discharge Date Admission Date: January 06, 2025 Subjective Patient states she did well overnight. Pain is controlled. Has been up and doing her activities of daily living without much difficulty or pain. She was concerned that one of her blood pressure readings was a little bit on the low side yesterday. She denied any lightheadedness or dizziness. Physical Exam Physical Exam: Constitutional: Alert HEENT: Mucous membranes moist. Lungs: Clear to auscultation, decreased, no wheezes rales or rhonchi CV: S1-S2, regular Abdomen: Soft, nontender, nondistended Extremities: No significant edema Musculoskeletal: Surgical dressing lumbar spine clean and dry, KARRI drain still in place Neuro: No focal deficits Psych: Cooperative, normal mood Results & Data Results & Data Vital Signs (Past 12 Hours) Vital Signs Temp Pulse Resp BP Pulse Ox O2 Del Method 01/09/25 08:00 36.8 C 68 18 142/78 H 96 Room Air
[2025-01-09 13:16] VITALS: TEMP 97.9; O2SAT 95
[2025-01-09 14:35] VITALS: BP 125/76; PULSE 64; RESP 16
== END 2025-01-09 15:40 | disposition home or self-care (01) | DRG 402 ==
LOC: ASU 05:27 → 3E 09:44